=== PATIENT | male | born 1990 | race Caucasian/White ===

== ENCOUNTER 2025-05-28 14:56 | Inpatient (IN) | payer BC ==
[~2025-05-28 14:56] MED LIST: Iopamidol 300 61% 100 ML VIAL FS ONE
[2025-05-28] MEDS ORDERED: Ondansetron PF 4 MG/2 ML Vial ONE (15:19)
[2025-05-28] MEDS ORDERED: levETIRAcetam 500 MG (5 mL) VIAL ONE (15:20)
[2025-05-28 15:23] LABS: #Basophils 0.07 10x3/uL (0.0-0.2); #Eosinophils Less than 0.03 10x3/uL (0.0-0.5); #Monocytes 0.74 10x3/uL (0.0-1.1); #Neutrophils 4.83 10x3/uL (1.5-8.4); %Basophils 1.0 % (0.0-2.0); %Eosinophils 0.1 % (0.0-6.0); %Lymphocytes 18.3 % (18.0-47.0); %Monocytes 10.6 % (0.0-10.0); %Neutrophils 69.6 % (40.0-75.0); Hematocrit 40.5 % (38.8-50.0); Hemoglobin 14.1 g/dL (13.5-17.5); Mean Corpuscular Hemoglobin 35.7 pg (27.0-33.0); Mean Corpuscular Volume 102.5 fL (81.2-95.1); Platelet Count 130 10x3/uL (150-450); Red Blood Cell (RBC) Count 3.95 10x6/uL (4.32-5.72); White Blood Cell (WBC) Count 6.95 10x3/uL (3.5-10.5)
[2025-05-28 16:02] LABS: INR-International Normal Ratio 1.0; PTT 25.9 sec (22.0-33.0); Prothrombin Time 10.6 sec (9.5-12.1)
[2025-05-28 16:13] LABS: Acetaminophen Less than 10 mcg/mL (Less than 10); Lipase 35 U/L (8-78); Magnesium 1.6 mg/dL (1.6-2.6); Salicylate Less than 8.0 mg/dL (Less than 8.0)
[2025-05-28 16:14] LABS: ALT (SGPT) 43 U/L (Less than 45); AST (SGOT) 82 U/L (11-34); Albumin 4.5 g/dL (3.1-4.5); Alkaline Phosphatase 84 U/L (40-110); Anion Gap 28 mmol/L (10-20); BUN (Urea Nitrogen) 5 mg/dL (8.9-20.6); Bilirubin, Total 0.8 mg/dL (0.3-1.2); Calc. Creatinine Clearance 0 mL/min (70-130); Calcium 9.7 mg/dL (7.8-10.44); Carbon Dioxide 19 mmol/L (22-29); Chloride 100 mmol/L (98-107); Globulin 2.9 g/dL (2.4-3.5); Glucose 146 mg/dL (70-105); Potassium 3.5 mmol/L (3.5-5.1); Sodium 143 mmol/L (136-145)
[2025-05-28 16:35] LABS: Troponin I Less than 0.010 ng/mL (< 0.028)
[2025-05-28] MEDS ORDERED: Melatonin 3 MG TAB PO PRN (18:02)
[2025-05-28] MEDS ORDERED: Bisacodyl 10 MG SUPP PR PRN (18:02)
[2025-05-28] MEDS ORDERED: Senokot S 8.6-50 MG TAB PO PRN (18:02)
[2025-05-28] MEDS ORDERED: Ondansetron PF 4 MG/2 ML Vial IVP PRN (18:02)
[2025-05-28] MEDS ORDERED: Electrolyte Replacement Protocol 1 EACH FS PRN (18:15)
[2025-05-28 19:47] VITALS: BMI 21.4
[2025-05-28 19:56] LABS: Syphilis Antibody Index 0.07 S/CO (<1.00 Non-Reactive)
[2025-05-28] MEDS: Acetaminophen 325 MG TAB PO PRN (20:59)
[2025-05-28] MEDS: cefTRIAXone\\ROCEPHIN 1 GM in Sodium Chloride 0.9% 100 ML IVPB SCH (20:59)
[2025-05-28] MEDS ORDERED: Magnesium 2 GM/50 ML(in water) 2 GM in Premix 1 BAG IVPB SCH (21:00)
[2025-05-28] MEDS: PHENOBARBITAL SODIUM IVPB SCH (21:00)
[2025-05-28] MEDS: SODIUM CHLORIDE IVPB SCH (21:00)
[2025-05-28] MEDS: ADMIXTURE FEE IVPB SCH (21:00)
[2025-05-28] MEDS: Multivitamins, Adult 10 ML, Thiamine HCl 100 MG, Folic Acid 1 MG in Dextrose 5 %-0.45 %... IV SCH (21:00)
[2025-05-28] MEDS: Magnesium 2 GM/50 ML(in water) 2 GM in Premix 1 BAG IVPB SCH (21:44)
[2025-05-28] MEDS: HYDROcodone/Acetaminophen 5/325 mg Tablet PO SCH (22:35)
[2025-05-29] MEDS: PNEUMOC 20-VAL CONJ-DIP CRM/PF 0.5 ML SYRINGE IM ONE (01:41)
[2025-05-29 04:07] LABS: Cocaine Metabolite Screen Negative (Negative); THC/Cannabinoid Screen PRELIM POSITIVE (Negative); Tricyclic Screen Negative (Negative)
[2025-05-29 04:34] LABS: #Basophils 0.05 10x3/uL (0.0-0.2); #Eosinophils 0.15 10x3/uL (0.0-0.5); #Monocytes 0.82 10x3/uL (0.0-1.1); #Neutrophils 2.83 10x3/uL (1.5-8.4); %Basophils 0.8 % (0.0-2.0); %Eosinophils 2.5 % (0.0-6.0); %Lymphocytes 36.5 % (18.0-47.0); %Monocytes 13.5 % (0.0-10.0); %Neutrophils 46.5 % (40.0-75.0); Hematocrit 33.4 % (38.8-50.0); Hemoglobin 11.9 g/dL (13.5-17.5); Mean Corpuscular Hemoglobin 36.3 pg (27.0-33.0); Mean Corpuscular Volume 101.8 fL (81.2-95.1); Platelet Count 98 10x3/uL (150-450); Red Blood Cell (RBC) Count 3.28 10x6/uL (4.32-5.72); White Blood Cell (WBC) Count 6.08 10x3/uL (3.5-10.5)
[2025-05-29 04:45] LABS: Anion Gap 12 mmol/L (10-20); BUN (Urea Nitrogen) 4 mg/dL (8.9-20.6); Calc. Creatinine Clearance 159 mL/min (70-130); Calcium 8.5 mg/dL (7.8-10.44); Carbon Dioxide 26 mmol/L (22-29); Chloride 102 mmol/L (98-107); Glucose 86 mg/dL (70-105); Magnesium 2.2 mg/dL (1.6-2.6); Potassium 3.5 mmol/L (3.5-5.1); Sodium 136 mmol/L (136-145)
[2025-05-29] MEDS ORDERED: levETIRAcetam in NS 1,000 MG in Premix 1 BAG IVPB SCH (09:00)
[2025-05-29] MEDS: Folic Acid 1 MG TAB PO SCH (09:01)
[2025-05-29] MEDS: Multivit, Therapeutic 1 TAB PO SCH (09:01)
[2025-05-29] MEDS: levETIRAcetam 500 MG (5 mL) VIAL SLOW IVP SCH (09:06)
[2025-05-29 15:56] LABS: Potassium 4.4 mmol/L (3.5-5.1)
[2025-05-29] MEDS: Enoxaparin 40 MG (0.4 mL) SYRINGE SC SCH (20:45)
[2025-05-30 05:13] LABS: #Basophils 0.07 10x3/uL (0.0-0.2); #Eosinophils 0.27 10x3/uL (0.0-0.5); #Monocytes 0.67 10x3/uL (0.0-1.1); #Neutrophils 3.42 10x3/uL (1.5-8.4); %Basophils 1.1 % (0.0-2.0); %Eosinophils 4.4 % (0.0-6.0); %Lymphocytes 28.1 % (18.0-47.0); %Monocytes 10.8 % (0.0-10.0); %Neutrophils 55.3 % (40.0-75.0); Hematocrit 34.4 % (38.8-50.0); Hemoglobin 12.1 g/dL (13.5-17.5); Mean Corpuscular Hemoglobin 36.1 pg (27.0-33.0); Mean Corpuscular Volume 102.7 fL (81.2-95.1); Platelet Count 111 10x3/uL (150-450); Red Blood Cell (RBC) Count 3.35 10x6/uL (4.32-5.72); White Blood Cell (WBC) Count 6.19 10x3/uL (3.5-10.5)
[2025-05-30 05:21] LABS: Anion Gap 12 mmol/L (10-20); BUN (Urea Nitrogen) 5 mg/dL (8.9-20.6); Calc. Creatinine Clearance 154 mL/min (70-130); Calcium 9.3 mg/dL (7.8-10.44); Carbon Dioxide 27 mmol/L (22-29); Chloride 101 mmol/L (98-107); Glucose 86 mg/dL (70-105); Potassium 4.1 mmol/L (3.5-5.1); Sodium 136 mmol/L (136-145)
[2025-05-30 12:03] VITALS: BP 127/78; TEMP 98.4
[2025-05-31 10:19] LABS: Campy jejuni + coli by PCR Negative (Negative); STEC Shiga Toxin 1+2 Negative (Negative); Salmonella spp. by PCR Negative (Negative); Shigella spp + EIEC by PCR Negative (Negative)
[2025-06-01] MEDS ORDERED: Thiamine 100 MG TAB PO SCH (09:00)
== END 2025-05-30 15:15 | disposition left against medical advice (07) | DRG 392 ==
LOC: CSHERS 14:56 → CSHTELE 17:28
PROVIDERS: ADMIT Family Medicine; ATTEND Family Medicine
PROC: XX20X89 Monitoring of Brain Electrical Activity, Computer-aided Detection and Notification, New Technology Group 9 (ICD-10-PCS; principal; 2025-05-28)
PROC: 3E03329 Introduction of Other Anti-infective into Peripheral Vein, Percutaneous Approach (ICD-10-PCS; 2025-05-28)
DX: K52.9 Noninfective gastroenteritis and colitis, unspecified (principal); G40.909 Epilepsy, unspecified, not intractable, without status epilepticus; F10.90 Alcohol use, unspecified, uncomplicated; Z79.899 Other long term (current) drug therapy; Z53.29 Procedure and treatment not carried out because of patient's decision for other reasons
CPT/HCPCS: 36415; 36416; 70450; 71045; 74177; 80048; 80053; 80177; 80306; 80307; 83605; 83630; 83690; 83735; 84100; 84484; 85025; 85610; 85730; 86780; 87040; 87324; 87449; 87505; 93005; 94760; 96361; 96365; 96366; 96375; 97139; J0696; J1650; J1953; J2060; J2543; J2560; J3360; J3411; J3475; J7042; Q9967